=== PATIENT | male | born 1965 | race Caucasian/White ===

== ENCOUNTER 2024-05-29 08:53 | Emergency (ER) | payer SELFPAY ==
[2024-05-29 09:04] VITALS: BP 154/71; PULSE 90; RESP 16; TEMP 36.3; O2SAT 97
--- NOTE | 2024-05-29 09:13 | ED.GENADULT ---
HPI - General Adult General Chief complaint: Upper Respiratory Infection Stated complaint: sob/cough Time Seen by Provider: 05/29/24 09:10 Source: patient, RN notes reviewed and old records reviewed Mode of arrival: ambulatory Limitations: no limitations History of Present Illness HPI narrative: 58-year-old male who presents to [facility] with complaints of 6 day history of cough with some shortness of breath, has been taking Mucinex with no relief in his symptoms and [place] cough drops. Patient reports he is 1-1/2-2 pack a day smoker reports he has never been told he has COPD but states he probably does. He reports wheezing when he lays down and shortness of breath with minimal exertion, denies chest pain, dizziness or palpitations. Patient has no tachypnea noted or any retractions, denies any known fevers. MD complaint: Cough with shortness of breath Onset (ago): day(s) (6) Severity: moderate Exacerbating factors: other (exertion) Treatments prior to arrival: other (Mucinex) Related Data Allergies Allergy/AdvReac Type Severity Reaction Status Date / Time No Known Allergies Allergy Verified 05/29/24 09:05 Review of Systems Review of Systems: CONSTITUTIONAL: Denies fever, chills, or sweats. EYES: Denies visual changes, redness, or discharge. ENT: Denies rhinorrhea, congestion, sore throat, or otalgia. CARDIOVASCULAR: Denies chest pain, palpitations, or edema. RESPIRATORY: reports cough and dyspnea with exertion GASTROINTESTINAL: Denies abdominal pain, nausea, vomiting, or diarrhea. GENITOURINARY: Denies dysuria or hematuria. SKIN: Denies rash or itching. MUSCULOSKELETAL: Denies back pain, joint pain, or myalgia. NEUROLOGIC: Denies headache, numbness, or weakness. PSYCHIATRIC: Denies anxiety or depression. All systems reviewed & are unremarkable except as noted in HPI and below [facility] Past Medical History Medical History (Updated 05/30/24 @ 09:10 by Hortensia Arciniega NP) Tobacco abuse Surgical History Surgical History (Updated 05/30/24 @ 09:10 by Hortensia Arciniega NP) Hx of appendectomy Social History Social History (Updated 05/30/24 @ 09:11 by Hortensia Arciniega NP) Smoking packs per day: 1.5 Smoking cigarettes per day: 30.0 Years smoked: 40 Smoking pack-years: 60.00 Smoking status: Current every day smoker Tobacco type: cigarettes Alcohol intake: current Alcohol use details: social Substance use type: does not use Gender identity (if verbalized by the patient): Male Comments At time of signature, agree with nursing past medical, surgical, social and family history. There is no relevant family history pertinent to the presenting complaint Exam Narrative: GENERAL: Well-appearing, well-nourished, obese and in no acute distress. HEAD: Normocephalic, atraumatic. EYES: PERRLA and EOMI. ENT: Nares clear, no rhinorrhea or epistaxis. Mucous membranes moist.TM's normal throat pink with some post nasal drainage NECK: Supple. no lymphadenopathy CHEST: Scattered wheezing on auscultation. No respiratory distress. no tachypnea noted SAO2 97% on room air HEART: Regular rate and rhythm. No murmur heard. Normal peripheral pulses. ABDOMEN: Soft, nontender, nondistended, normal active bowel sounds. EXTREMITIES: Normal range of motion. No edema. SKIN: Warm, dry, no rash. NEURO: No focal deficits. Alert and oriented x3. Course Course Emergency Course: Patient is aware of diagnosis, understands and agrees to treatment plan.? Anticipatory guidance given.? Patient agrees to follow-up as directed and is aware of reasons to seek care at the emergency department. Portions of this record may have been created with voice recognition software Level of Care: Express Care Visit Vital Signs Vital signs: Vital Signs Temperature 36.3 C L 05/29/24 09:04 Pulse Rate 90 05/29/24 09:04 Respiratory Rate 16 05/29/24 09:04 Blood Pressure 154/71 H 05/29/24 09:04 Pulse Oximetry 97 05/29/24 0
== END 2024-05-29 09:33 | disposition home or self-care (01) ==
PROVIDERS: Emergency Provider Registered Nurse
DX: J40 Bronchitis, not specified as acute or chronic (principal); F17.210 Nicotine dependence, cigarettes, uncomplicated
CPT/HCPCS: 99203; G0463